=== PATIENT | male | born 1965 | race Asian ===

== ENCOUNTER 2019-06-16 15:27 | Outpatient (CLI) | payer OTHER ==
[2019-06-16 16:15] LABS: PLATELET COUNT 263 K/uL (142-355)
[2019-06-16 16:29] LABS: POTASSIUM 3.8 mmol/L (3.6-5.2)
== END 2019-06-16 19:29 | disposition home or self-care (01) ==
LOC: LABW 15:27
PROVIDERS: Registered Nurse
DX: M79.672 Pain in left foot (principal); R22.42 Localized swelling, mass and lump, left lower limb; M25.572 Pain in left ankle and joints of left foot
CPT/HCPCS: 36415; 80053; 84550; 85027

== ENCOUNTER 2019-08-13 16:06 | Outpatient (CLI) | payer OTHER ==
[2019-08-13 16:31] LABS: PLATELET COUNT 243 K/uL (142-355)
[2019-08-13 17:13] LABS: POTASSIUM 3.8 mmol/L (3.6-5.2)
== END 2019-08-13 22:48 | disposition home or self-care (01) ==
LOC: LABW 16:06
PROVIDERS: Orthopaedic Surgery
DX: M25.572 Pain in left ankle and joints of left foot (principal); M25.562 Pain in left knee; M17.12 Unilateral primary osteoarthritis, left knee; R60.1 Generalized edema
CPT/HCPCS: 36415; 80053; 84550; 85027; 85651; 86038; 86140; 86431

== ENCOUNTER 2019-10-04 08:09 | Outpatient (CLI) | payer OTHER | END 2019-10-04 19:34 | disposition home or self-care (01) | LOC: NM 08:09 | DX: M25.572 Pain in left ankle and joints of left foot (principal); M65.872 Other synovitis and tenosynovitis, left ankle and foot; R76.0 Raised antibody titer | CPT/HCPCS: A9561 ==

== ENCOUNTER 2020-02-17 21:26 | Emergency (ER) | payer OTHER ==
[~2020-02-17] VITALS: Ht 167.6 cm; Wt 99.3 kg
[2020-02-17 23:32] LABS: PLATELET COUNT 254 K/uL (142-355)
[2020-02-17 23:35] LABS: POTASSIUM 4.5 mmol/L (3.6-5.2)
[2020-02-18 03:25] VITALS: TEMP 99.2
[2020-02-18 03:32] VITALS: BP 103/53
== END 2020-02-18 03:25 | disposition short-term general hospital (02) ==
LOC: ED 21:26
PROC: 009U3ZX Drainage of Spinal Canal, Percutaneous Approach, Diagnostic (ICD-10-PCS; principal; 2020-02-18)
DX: G03.9 Meningitis, unspecified (principal); R51 Headache; D72.828 Other elevated white blood cell count; Z03.818 Encounter for observation for suspected exposure to other biological agents ruled out
CPT/HCPCS: 80053; 81000; 85027; 87635; 93005; 96361; 96365; 96375; 99284; G2023; J0696; J1885; U0003

== ENCOUNTER 2020-11-26 00:26 | Emergency (ER) | payer OTHER ==
[2020-12-09 22:21] LABS: PLATELET COUNT 212 K/uL (142-355)
[2020-12-09 22:22] LABS: POTASSIUM 3.6 mmol/L (3.6-5.2)
== END 2020-11-26 03:05 | disposition home or self-care (01) ==
LOC: ED 00:26
PROVIDERS: Emergency Medicine
DX: L03.116 Cellulitis of left lower limb (principal); I73.89 Other specified peripheral vascular diseases; W45.8XXA Other foreign body or object entering through skin, initial encounter; Y92.098 Other place in other non-institutional residence as the place of occurrence of the external cause
CPT/HCPCS: 36415; 80048; 83605; 85027; 85379; 87040; 96365; 99284; J0696

== ENCOUNTER 2021-04-02 10:20 | Outpatient (CLI) | payer OTHER | END 2021-04-02 19:05 | disposition home or self-care (01) | LOC: RAD 10:20 | PROVIDERS: ATTEND Nurse Practitioner Family | DX: M79.601 Pain in right arm (principal) ==

== ENCOUNTER 2021-05-15 17:22 | Emergency (ER) | payer OTHER ==
[~2021-05-15] VITALS: Ht 167.6 cm; Wt 101.6 kg
[2021-05-15 18:14] LABS: POTASSIUM 3.5 mmol/L (3.6-5.2)
[2021-05-15 18:18] LABS: PLATELET COUNT 264 K/uL (142-355)
[2021-05-15 18:33] LABS: PARTIAL THROMBOPLASTIN TIME 24.3 SECONDS (24.5-33.6)
[2021-05-15 19:45] VITALS: BP 150/79; TEMP 98.3
== END 2021-05-15 19:45 | disposition home or self-care (01) ==
LOC: ED 17:27
PROVIDERS: Hospitalist
DX: S00.83XA Contusion of other part of head, initial encounter (principal); S00.81XA Abrasion of other part of head, initial encounter; V29.9XXA Motorcycle rider (driver) (passenger) injured in unspecified traffic accident, initial encounter; Y92.89 Other specified places as the place of occurrence of the external cause
CPT/HCPCS: 36415; 80048; 80320; 85027; 85610; 85730; 96365; 96375; 99284; J0690; J1885; J2270; J2405

== ENCOUNTER 2021-08-19 13:28 | Outpatient (CLI) | payer BC | END 2021-08-19 20:40 | disposition home or self-care (01) | LOC: RAD 13:28 | PROVIDERS: ATTEND Physician Assistant | DX: M54.2 Cervicalgia (principal) ==

== ENCOUNTER 2022-03-09 17:50 | Emergency (ER) | payer OTHER ==
[~2022-03-09] VITALS: Ht 167.6 cm; Wt 104.3 kg
[2022-03-09 17:51] VITALS: BP 130/84; TEMP 99
== END 2022-03-09 20:25 | disposition home or self-care (01) ==
LOC: ED 17:50
DX: S05.31XA Ocular laceration without prolapse or loss of intraocular tissue, right eye, initial encounter (principal); S05.01XA Injury of conjunctiva and corneal abrasion without foreign body, right eye, initial encounter; W20.8XXA Other cause of strike by thrown, projected or falling object, initial encounter; Y92.89 Other specified places as the place of occurrence of the external cause
CPT/HCPCS: 99283

== ENCOUNTER 2022-08-02 08:58 | Outpatient (CLI) | payer OTHER | END 2022-08-02 18:53 | disposition home or self-care (01) | LOC: RAD 08:58 | PROVIDERS: ATTEND Nurse Practitioner | DX: R04.2 Hemoptysis (principal) ==

== ENCOUNTER 2023-01-25 00:13 | Emergency (ER) | payer OTHER ==
[~2023-01-25] VITALS: Ht 167.6 cm; Wt 105.2 kg
[2023-01-25 00:20] VITALS: TEMP 97.9
[2023-01-25 01:50] VITALS: BP 140/85
[2023-01-25] MEDS ORDERED: XARELTO20 MG PO (05:57)
== END 2023-01-25 01:50 | disposition home or self-care (01) ==
LOC: ED 00:13
DX: I87.2 Venous insufficiency (chronic) (peripheral) (principal); M79.605 Pain in left leg
CPT/HCPCS: 96372; 99283; J1885